=== PATIENT | male | born 1945 | race Two or more races ===

== ENCOUNTER 2018-01-08 09:00 | Outpatient (CLI) | payer MEDICARE, OTHER ==
[~2018-01-08] VITALS: Ht 172.7 cm; Wt 77.1 kg
[~2018-01-08 09:00] MED LIST: ASPIRIN EC81 MG ORAL; ATORVASTATIN CA20 MG ORAL; AZOR 10-20 MG1 EACH ORAL
[2018-01-08 09:32] VITALS: BP 139/85
[2018-01-08] MEDS ORDERED: METFORMIN HCL500 M1 ORAL (09:38)
[2018-01-08] MEDS ORDERED: AMLODIPINE BESYL5 MG ORAL (09:38)
--- NOTE | 2018-01-08 10:35 | GI Initial Consult Note ---
History of Present Illness General Date patient seen: Jan 08, 2018 Time patient seen: 10:25 Referring physician: TANISHA Reason for Consultation: Colonoscopy Screening Present Illness HPI 72 year old male patient referred by Dr. Sierra presents today for routine check up. Denies any abdominal pain, N/V/D or constipation. Denies any unintentional weight loss or changes in dietary habits. No signs of abuse or neglect. Patient is not fall risk. Home Meds Reported Medications Amlodipine Besylate* (AMLODIPINE BESYLATE*) 5 Mg Tablet, 5 MG ORAL DAILY, TAB 01/08/18 Metformin Hcl* (METFORMIN HCL*) 500 Mg Tablet, 500 MG ORAL DAILY, TAB 01/08/18 Atorvastatin Calcium* (ATORVASTATIN CALCIUM*) 20 Mg Tablet, 10 MG ORAL BEDTIME, TAB 11/17/14 Discontinued Reported Medications Amlodipine Bes/Olmesartan Med (YNES 10-20 MG TABLET) 1 Each Tablet, 1 TAB ORAL DAILY, TAB 11/17/14 Aspirin Ec* (ASPIRIN EC*) 81 Mg Tablet., 81 MG ORAL DAILY, TAB 11/17/14 Med list reviewed/reconciled: Yes Allergies: Coded Allergies: No Known Allergies (Unverified , 11/17/14) Patient History History Provided By: Patient, Medical Record PMH Narrative DM >> new dx x 8 months HTN HLD Past Surgical History: N/A Family History Narrative Brother had gastric CA Social History: Reports: alcohol use - occasional, other - coffee Review of Systems All Other Systems: negative except mentioned in HPI Physical Exam Vital Signs Date Time Temp Pulse Resp B/P (MAP) Pulse Ox O2 Delivery O2 Flow Rate FiO2 01/08/18 09:32 97.9 80 18 139/85 97 97.9 Sp02 EP Interpretation: reviewed, normal General Appearance: well appearing, no apparent distress, alert Head: normocephalic EENT: PERRL/EOMI, normal ENT inspection Neck: supple Respiratory: normal breath sounds, no respiratory distress Cardiovascular: normal rate Gastrointestinal: normal inspection, non tender, soft, normal bowel sounds, non -distended Rectal: deferred Genitourinary: deferred Musculoskeletal: normal inspection, back normal Neurologic: normal inspection, alert, oriented x3, responsive Psychiatric: normal inspection, judgement/insight normal, memory normal Skin: normal inspection, normal color, no rash, warm/dry, palpation normal, well hydrated Lymphatic: normal inspection, no adenopathy GI: Plan Problems: (1) HTN (hypertension) (2) Dyslipidemia (3) Colon polyp (4) Family history of gastric cancer Plan Colonoscopy scheduled 01-16-18. - CLD & (Nulytely/Suprep/Movi-Prep) prep instructions given and acknowledged by patient. - NPO @ NE day prior procedure explained. Seen with Dr. Gimenez. Thank you for this patient referral. The patient was seen and examined at bedside and all new and available data was reviewed in the patients chart. I agree with the above findings, impression and plan. (Patient seen earlier today. Signature stamp does not reflect patient encounter time.). - MD Diane Sainz AnhDanielle GLEASON OPERATOR Jan 08, 2018 10:35
== END 2018-01-08 09:30 | disposition home or self-care (01) ==
LOC: PAN 09:00
DX: K63.5 Polyp of colon (principal); I10 Essential (primary) hypertension; E78.5 Hyperlipidemia, unspecified; Z80.0 Family history of malignant neoplasm of digestive organs; Z79.82 Long term (current) use of aspirin; Z79.84 Long term (current) use of oral hypoglycemic drugs; E11.9 Type 2 diabetes mellitus without complications

== ENCOUNTER 2018-01-16 07:03 | Day surgery (SDC) | payer MEDICARE, OTHER ==
[~2018-01-16] VITALS: Ht 170.2 cm; Wt 72.6 kg
[2018-01-16] VITALS (9 sets, daily range): BP systolic 131–143; BP diastolic 73–81
--- NOTE | 2018-01-16 07:01 | Anethesia Preoperative Eval ---
Anesthesia Pre-op PMH/ROS General Date of Evaluation: Jan 16, 2018 Time of Evaluation: 06:58 Anesthesiologist: andrae ASA Score: ASA 3 Mallampati Score Class I : Soft palate, uvula, fauces, pillars visible Class II: Soft palate, uvula, fauces visible Class III: Soft palate, base of uvula visible Class IV: Only hard plate visible Mallampati Classification: Class II Surgeon: sybil Diagnosis: hx/o colon polyps Anesthesia History: none Social History: smoking - former smoker, alcohol use Family History: no anesthesia problems Allergies: Coded Allergies: No Known Allergies (Unverified , 01/16/18) Medications: see eMAR Past Medical History Cardiovascular: Reports: HTN, other - dyslipidemia, hypercholesterolemia Pulmonary: Denies: asthma, COPD, VALENTINE, other Gastrointestinal/Genitourinary: Reports: other - colon polyps, h. pylori infection, Neurologic/Psychiatric: Denies: dementia, CVA, depression/anxiety, TIA, other Endocrine: Denies: DM, hypothyroidism, steroids, other HEENT: Reports: other - decreased visual acuity Hematology/Immune: Denies: anemia, DVT, bleeding disorder, other Anesthesia Pre-op Phys. Exam Physician Exam Last Vital Signs Date Time Temp Pulse Resp B/P (MAP) Pulse Ox O2 Delivery O2 Flow Rate FiO2 01/16/18 07:55 Room Air 01/16/18 07:50 98.1 66 18 143/81 (101) 96 98.1 Constitutional: NAD Neurologic: CN 2-12 intact Cardiovascular: RRR Respiratory: CTA Gastrointestinal: S/NT/ND Airway Exam Mallampati Score: Class II MO: full Neck: supple TMD: 2fb ROM: full Anesthesia Pre-op A/P Risk Assessment & Plan Assessment: asa3 Plan: mac Status Change Before Surgery: No Pre-Antibiotics Drug: Gabby Roca MD Jan 16, 2018 07:01
[~2018-01-16 07:03] MED LIST changes: +AMLODIPINE BESYL5 MG ORAL; +Atropine Inj 1mg/10ml Syr IV PRN; +DiphenhydrAMINE 50mg/ml Inj IVP PRN; +Labetalol 5mg/ml 20ml vial IV PRN; +METFORMIN HCL500 M1 ORAL; +Midazolam 2mg/2ml Inj IVP PRN; +fentaNYL 100 mcg/2 mL IV PRN
--- NOTE | 2018-01-16 08:58 | Pre-Procedure Note/Attestation ---
Pre-Procedure Note/Attestation Complete Prior to Procedure Planned Procedure: not applicable Procedure Narrative: esophagogastroduodenoscopy and colonoscopy Indications for Procedure Pre-Operative Diagnosis: screening colon , GERD Attestation I attest that I discussed the nature of the procedure; its benefits; risks and complications; and alternatives (and the risks and benefits of such alternatives ), prior to the procedure, with the patient (or the patient's legal car sales representative). I attest that, if there was a reasonable possibility of needing a blood transfusion, the patient (or the patient's legal car sales representative) was given the [facility] standardized written summary, pursuant to the [place] Blood Safety Act ([place] Health and Safety Code # 1645, as amended). I attest that I re-evaluated the patient just prior to the surgery and that there has been no change in the patient's H&P, except as documented below: Jose R Gimenez MD Jan 16, 2018 08:58
--- NOTE | 2018-01-16 08:58 | Short Stay Surgery H&P ---
History of Present Illness History of Present Illness Chief Complaint see recent office consult note HPI Papito De Los Santos is a 72 year old male who was admitted on for History Of Colon Polyps Patient History Allergies: Coded Allergies: No Known Allergies (Unverified , 01/16/18) Relevant Family History: Gastric cancer Medication History Scheduled Amlodipine Besylate* (Amlodipine Besylate*), 5 MG ORAL DAILY, (Reported) Atorvastatin Calcium* (Atorvastatin Calcium*), 10 MG ORAL BEDTIME, (Reported) Metformin Hcl* (Metformin Hcl*), 500 MG ORAL DAILY, (Reported) Physical Exam Vital Signs Last Vital Signs Date Time Temp Pulse Resp B/P (MAP) Pulse Ox O2 Delivery O2 Flow Rate FiO2 01/16/18 07:55 Room Air 01/16/18 07:50 98.1 66 18 143/81 (101) 96 98.1 Plan Attestation Are the patient's medical conditions optimized for surgery? Jose R Gimenez MD Jan 16, 2018 08:58
[2018-01-16] MEDS ORDERED: Lidocaine 1% MPF 10mg/ml 5ml ONE (09:00)
[2018-01-16] MEDS ORDERED: Propofol 200mg/20ml IV ONE (09:00)
--- NOTE | 2018-01-16 09:46 | Endoscopy Procedure Note ---
Endoscopy Procedure Note General Indication for Procedure: screening colon, GERD Procedures Performed: EGD, colonoscopy Operative Findings/Diagnosis: esophagitis, colon polyp Specimen: yes Pt Tolerated Procedure Well: Yes Estimated Blood Loss: none Anesthesia Anesthesiologist: jaspreet Anesthesia: MAC Inserted Devices Implant(s) used?: No Quality Quality of Bowel Preparation: Excellent Did scope reach the cecum?: Yes Was there any complications?: No GI Core Measures 50 yrs or older w/o bx or poly: No 10yrs. F/U not recommended: Yes If not recommended, why?: Above average risk 10 yrs. F/U needed: Yes 18 years or older w/prev. colo: Yes <3yrs. since last colonoscopy: No Jose R Gimenez MD Jan 16, 2018 09:46
--- NOTE | 2018-01-16 09:47 | Immediate Post-Op Evaluation ---
Immediate Post-Op Evalulation Immediate Post-Op Evalulation Procedure: egd/colonoscopy/bx Date of Evaluation: Jan 16, 2018 Time of Evaluation: 09:47 IV Fluids: 500ml 0.9ns Blood Products: none Estimated Blood Loss: negligible Blood Pressure Systolic: 138 Blood Pressure Diastolic: 81 Pulse Rate: 63 Respiratory Rate: 18 O2 Sat by Pulse Oximetry: 99 Temperature (Fahrenheit): 97.8 Pain Score (1-10): 0 Nausea: No Vomiting: No Complications none Patient Status: awake, reacts, patent Hydration Status: adequate Drug: Gabby Roca MD Jan 16, 2018 09:47
--- NOTE | 2018-01-16 10:57 | 48 Hour Post Anesthesia Eval ---
Post Anesthesia Evaluation Procedure: egd/colonoscopy/bx Date of Evaluation: Jan 16, 2018 Time of Evaluation: 09:49 Blood Pressure Systolic: 135 0: 75 Pulse Rate: 65 Respiratory Rate: 18 Temperature (Fahrenheit): 97.8 O2 Sat by Pulse Oximetry: 99 Airway: patent Nausea: No Vomiting: No Pain Intensity: 0 Hydration Status: adequate Cardiopulmonary Status: stable Mental Status/LOC: patient returned to baseline Post-Anesthesia Complications: none Follow-up care needed: N/A Gabby Ray MD Jan 16, 2018 10:57
--- NOTE | 2018-01-16 16:15 | Procedure Note ---
DATE OF PROCEDURE: 01/16/2018 SURGEON: Jose R Gimenez M.D. ANESTHESIOLOGIST: Dr. Gotti. PROCEDURE: Upper endoscopy with biopsy and colonoscopy with biopsy. ANESTHESIA: Per Dr. Gotti. INSTRUMENT: Olympus adult flexible upper endoscope and colonoscope. INDICATION: Screening colonoscopy evaluation, history of colonic polyps, chronic acid reflux disease, and GERD. The procedure, risks, benefits, and possible consequences, including hemorrhage, aspiration, perforation and infection, and alternative treatments, were explained to the patient/legal guardian by Dr. Jose R Gimenez and the patient/legal guardian understood and accepted these risks. DESCRIPTION OF PROCEDURE: After informed consent was obtained and the patient was adequately sedated, Olympus upper endoscope was advanced from the mouth into the second portion of the duodenum and retroflexion was performed in the stomach. The patient had some peeling of the mucosa in the distal esophagus suggestive of distal esophagitis. No obvious ulceration or mass. In the stomach, there was diffuse gastritis. Random biopsy from antrum and body was obtained to rule out H. pylori infection. At this time, the upper endoscope was retrieved. The patient was turned over for colonoscopy. First, rectal exam was performed which was positive for external and internal hemorrhoids. Then, the scope was advanced from the rectum into the cecum and subsequently to the terminal ileum. Quality of prep was very good. The patient had normal terminal ileum. He had one diminutive polyp in the descending colon, which was removed with the cold biopsy forceps technique. There was one or two diverticula in the right colon. Retroflexion of rectum showed evidence of internal hemorrhoids. SUMMARY OF FINDINGS: 1. Peeling of the mucosa in the distal esophagus suggestive of esophagitis. 2. Gastritis, status post biopsy. 3. One colonic polyp removed, see above for details. 4. One or two diverticula in the right colon. 5. Internal and external hemorrhoids. RECOMMENDATIONS: 1. Follow up biopsy results and treat accordingly. We will start the patient on PPI daily given evidence of esophagitis. 2. We will recommend repeat colonoscopy in 5 years. Jose R Gimenez M.D. DR: Efrain JOB#: [id number] CC:
--- NOTE | 2018-01-20 12:31 | Cardiology Report ---
APPROVED REPORT EKG Measurement Heart [id number] Normal sinus rhythm Left axis deviation Abnormal ECG
== END 2018-01-16 11:10 | disposition home or self-care (01) ==
LOC: GAS 07:03
DX: Z12.11 Encounter for screening for malignant neoplasm of colon (principal); K63.5 Polyp of colon; K57.30 Diverticulosis of large intestine without perforation or abscess without bleeding; K64.4 Residual hemorrhoidal skin tags; K64.8 Other hemorrhoids; Z86.010 Personal history of colon polyps; K29.50 Unspecified chronic gastritis without bleeding; K21.9 Gastro-esophageal reflux disease without esophagitis; I10 Essential (primary) hypertension; E78.5 Hyperlipidemia, unspecified; E78.00 Pure hypercholesterolemia, unspecified; Z87.891 Personal history of nicotine dependence
CPT/HCPCS: 43239; 45380; 82962; 93005; J2704; 94003; 94150

== ENCOUNTER 2018-01-29 09:31 | Outpatient (CLI) | payer MEDICARE, OTHER ==
[~2018-01-29 09:31] MED LIST changes: -Atropine Inj 1mg/10ml Syr IV PRN; -DiphenhydrAMINE 50mg/ml Inj IVP PRN; -Labetalol 5mg/ml 20ml vial IV PRN; -Midazolam 2mg/2ml Inj IVP PRN; -fentaNYL 100 mcg/2 mL IV PRN
--- NOTE | 2018-01-29 09:59 | GI Progress Note ---
Assessment/Plan Problems: (1) Gastritis ICD Codes: K29.70 - Gastritis, unspecified, without bleeding SNOMED: [id number] (2) Colon polyp ICD Codes: K63.5 - Colon polyp SNOMED: 68816852 Status: stable Status Narrative Seen with Dr. Gimenez. Assessment/Plan SUMMARY OF FINDINGS: 1. Peeling of the mucosa in the distal esophagus suggestive of esophagitis. 2. Gastritis, status post biopsy. 3. One colonic polyp removed, see above for details. 4. One or two diverticula in the right colon. 5. Internal and external hemorrhoids. RECOMMENDATIONS: Follow up biopsy results and treat accordingly. >> negative for H. Pylori Cont the patient on PPI daily given evidence of esophagitis. Repeat colonoscopy x 5 years RTC x 6 months/prn The patient was seen and examined at bedside and all new and available data was reviewed in the patients chart. I agree with the above findings, impression and plan. (Patient seen earlier today. Signature stamp does not reflect patient encounter time.). - Jose R Gimenez MD Subjective Gastrointestinal/Abdominal: Reports: no symptoms Objective T 98.0 BP 133/87 84 HR 96 RA General Appearance: WD/WN, no apparent distress, alert Cardiovascular: normal rate Respiratory/Chest: normal breath sounds, no respiratory distress Abdominal Exam: normal bowel sounds, non tender, soft Extremities: normal range of motion, non-tender Juan Contreras NP Jan 29, 2018 09:59
[2018-01-29 10:05] VITALS: BP 130/87
== END 2018-01-29 10:05 | disposition home or self-care (01) ==
LOC: PAN 09:31
DX: K29.70 Gastritis, unspecified, without bleeding (principal); K63.5 Polyp of colon; K57.90 Diverticulosis of intestine, part unspecified, without perforation or abscess without bleeding; K64.8 Other hemorrhoids; K64.4 Residual hemorrhoidal skin tags
CPT/HCPCS: 99212